=== PATIENT | female | born 1970 | race Caucasian/White ===

== ENCOUNTER 2016-09-14 08:13 | Outpatient (CLI) ==
[2016-03-12 14:14] VITALS: BMI 32.2
--- NOTE | 2016-09-14 09:08 | US ---
EXAM: Abdominal ultrasound limited HISTORY: Cirrhosis COMPARISON: Ultrasound 03/25/2016 TECHNIQUE: Sonographic and limited Doppler evaluation of the right upper quadrant was performed. FINDINGS: The liver is mildly heterogeneous in echogenicity and measures at upper limit of normal a t 16.8 cm. The portal vein is patent. The gallbladder is contracted with no visualized stones or s ludge. The gallbladder wall measures 0.4 cm, but the gallbladder is contracted. Common bile duct is unremarkable and measures 0.4 cm in diameter. The pancreas is unable to be evaluated due to bowel gas. The right kidney measures 9.2 x 4.6 x 4.5 cm and cortical thickness of 1.4 cm. IMPRESSION: 1. Coarse, increased echotexture of the liver with mild hepatomegaly and no focal hepatic cyst. Fin dings are consistent with cirrhosis. 2. The gallbladder is contracted with no visualized stones and gallbladder wall thickening likely r elated to contracted gallbladder.
== END 2016-09-14 08:14 | disposition home or self-care (01) ==
LOC: RAD 08:13
PROVIDERS: ATTEND Internal Medicine
DX: K74.60 Unspecified cirrhosis of liver (principal)

== ENCOUNTER 2016-09-16 14:05 | Outpatient (CLI) ==
[2016-03-12 14:14] VITALS: BMI 32.2
[2016-09-16 14:18] LABS: BASOPHILS # (AUTO) 0.1 K/uL (0-0.2); BASOPHILS % (AUTO) 0.8 % (0.0-3.0); EOSINOPHILS # (AUTO) 0.1 K/ul (0.0-0.7); EOSINOPHILS % (AUTO) 1.2 % (0.0-7.0); HEMATOCRIT 41.9 % (37.0-47.0); HEMOGLOBIN 13.6 g/dl (12.0-16.0); IMMATURE GRANULOCYTE % (AUTO) 0.3 % (0.0-5.0); LYMPHOCYTES # (AUTO) 2.5 K/uL (0.60-3.4); LYMPHOCYTES % (AUTO) 23.6 (10.0-50.0); MEAN CORPUSCULAR HEMOGLOBIN 28.6 pg (27.0-31.0); MEAN CORPUSCULAR HGB CONC 32.5 (31.8-35.4); MONOCYTES # (AUTO) 0.7 K/uL (0.4-2.0); MONOCYTES % (AUTO) 6.5 (0-10); NEUTROPHILS # (AUTO) 7.1 K/ul (2.0-6.9); NEUTROPHILS % (AUTO) 67.6; PLATELET COUNT 170 10^3/uL (140-440); RED BLOOD COUNT 4.76 10^6/ul (4.20-5.40); WHITE BLOOD COUNT 10.56 K/ul (4.6-10.2)
[2016-09-16 14:39] LABS: ALBUMIN 3.8 g/dL (3.4-5.0); ALBUMIN/GLOBULIN RATIO 1.19; ANION GAP 14.2; BILIRUBIN,TOTAL 1.17 mg/dL (0.00-1.20); BUN/CREATININE RATIO 16.41; CALCIUM 9.5 mg/dL (8.2-10.2); CREATININE 0.67 mg/dL (0.60-1.30); POTASSIUM 4.2 mmol/L (3.5-5.10)
== END 2016-09-16 14:06 | disposition home or self-care (01) ==
LOC: LAB 14:05
PROVIDERS: ATTEND Emergency Medicine
DX: F32.9 Major depressive disorder, single episode, unspecified (principal); I10 Essential (primary) hypertension; R60.9 Edema, unspecified
CPT/HCPCS: 36415; 80053; 85025

== ENCOUNTER 2016-12-09 16:10 | Outpatient (CLI) ==
[2016-03-12 14:14] VITALS: BMI 32.2
[2016-12-09 17:59] LABS: ALBUMIN 3.8 g/dL (3.4-5.0); ALBUMIN/GLOBULIN RATIO 1.15; ANION GAP 9.3; BILIRUBIN,TOTAL 0.46 mg/dL (0.00-1.20); BUN/CREATININE RATIO 13.84; CALCIUM 9.4 mg/dL (8.2-10.2); CHOL/HDL RATIO 3.6 (4.5-5.5); CREATININE 0.65 mg/dL (0.60-1.30); POTASSIUM 4.3 mmol/L (3.5-5.10); TOTAL PROTEIN 7.1 g/dL (6.4-8.2)
== END 2016-12-09 16:11 | disposition home or self-care (01) ==
LOC: LAB 16:10
PROVIDERS: ATTEND Nurse Practitioner Family
DX: E78.5 Hyperlipidemia, unspecified (principal); E03.9 Hypothyroidism, unspecified; I10 Essential (primary) hypertension; K70.30 Alcoholic cirrhosis of liver without ascites; R94.6 Abnormal results of thyroid function studies
CPT/HCPCS: 36415; 80053; 80061; 84443

== ENCOUNTER 2017-03-09 13:01 | Outpatient (CLI) ==
[2016-03-12 14:14] VITALS: BMI 32.2
--- NOTE | 2017-03-10 08:27 | MAMMO ---
EXAM: Bilateral digital screening mammogram History: Screening Comparison: Bilateral mammogram 03/04/2016 Findings: MLO and CC views of bilateral breasts demonstrate scattered fibroglandular breast parench yma. There are no dominant masses, no suspicious microcalcifications and no architectural distortion s Impression: Stable negative mammogram. Recommend followup routine screening mammography in 1 year. BIRADS 1
== END 2017-03-09 13:02 | disposition home or self-care (01) ==
LOC: RAD 13:01
PROVIDERS: ATTEND Nurse Practitioner Family
DX: Z12.31 Encounter for screening mammogram for malignant neoplasm of breast (principal)

== ENCOUNTER 2017-04-12 10:35 | Outpatient (CLI) ==
[2016-03-12 14:14] VITALS: BMI 32.2
[2017-04-12 11:03] LABS: BASOPHILS # (AUTO) 0.1 K/uL (0-0.2); BASOPHILS % (AUTO) 0.9 % (0.0-3.0); EOSINOPHILS # (AUTO) 0.2 K/ul (0.0-0.7); EOSINOPHILS % (AUTO) 2.5 % (0.0-7.0); HEMATOCRIT 42.9 % (37.0-47.0); HEMOGLOBIN 14.3 g/dl (12.0-16.0); IMMATURE GRANULOCYTE % (AUTO) 0.3 % (0.0-5.0); LYMPHOCYTES # (AUTO) 2.8 K/uL (0.60-3.4); LYMPHOCYTES % (AUTO) 36.8 (10.0-50.0); MEAN CORPUSCULAR HEMOGLOBIN 29.6 pg (27.0-31.0); MEAN CORPUSCULAR HGB CONC 33.3 (31.8-35.4); MEAN CORPUSCULAR VOLUME 88.8 fl (81.0-99.0); MONOCYTES # (AUTO) 0.5 K/uL (0.4-2.0); MONOCYTES % (AUTO) 6.9 (0-10); NEUTROPHILS % (AUTO) 52.6; PLATELET COUNT 180 10^3/uL (140-440); RED BLOOD COUNT 4.83 10^6/ul (4.20-5.40); WHITE BLOOD COUNT 7.66 K/ul (4.6-10.2)
[2017-04-12 11:26] LABS: PROTHROMBIN TIME 11.1 SEC (9.3-11.0)
[2017-04-12 11:46] LABS: ALBUMIN 3.8 g/dL (3.4-5.0); ALBUMIN/GLOBULIN RATIO 1.27; ANION GAP 14.3; BILIRUBIN,TOTAL 0.82 mg/dL (0.00-1.20); BUN/CREATININE RATIO 11.26; CREATININE 0.71 mg/dL (0.60-1.30); POTASSIUM 4.3 mmol/L (3.5-5.10); TOTAL PROTEIN 6.8 g/dL (6.4-8.2)
== END 2017-04-12 10:36 | disposition home or self-care (01) ==
LOC: LAB 10:35
PROVIDERS: ATTEND Nurse Practitioner Family
DX: K70.30 Alcoholic cirrhosis of liver without ascites (principal); E78.5 Hyperlipidemia, unspecified; E78.1 Pure hyperglyceridemia; E03.9 Hypothyroidism, unspecified; Z72.0 Tobacco use
CPT/HCPCS: 36415; 80053; 80061; 84443; 85025; 85610

== ENCOUNTER 2017-08-11 08:36 | Day surgery (SDC) ==
[2016-03-12 14:14] VITALS: BMI 32.2
[2017-08-11 09:57] VITALS: TEMP 98.5
[2017-08-11] MEDS ORDERED: CORTISPORIN OTIC SUSP OT PRN (09:58)
[2017-08-11] MEDS ORDERED: NEO-SYNEPHRINE OT PRN (09:58)
[2017-08-11] MEDS ORDERED: VERSED ONE (11:00)
[2017-08-11] MEDS ORDERED: DIPRIVAN 20 ML VIAL IVP ONE (11:00)
[2017-08-11] MEDS ORDERED: SUBLIMAZE ONE (11:00)
[2017-08-11] MEDS ORDERED: MARCAINE 0.25% MDV INJ STA (13:58)
[2017-08-11 14:04] VITALS: BP 97/63
--- NOTE | 2017-08-20 11:44 | OP ---
PREOPERATIVE DIAGNOSIS: 1. CHRONIC INFLAMMATION OF ANTERIOR TWO-THIRDS OF LEFT SIDE OF TONGUE 2. FRACTURED TOOTH POSTOPERATIVE DIAGNOSIS: SAME OPERATION: EXCISION OF LESION OF TONGUE AND LEFT PREMOLAR DENTAL EXTRACTION PROCEDURE: The patient was taken to surgery, placed on the table and general anesthesia was administered. 0.025% Marcaine was injected into the tongue then using a knife the area was excised and sent off for permanent section. The edges of the lesion were then brought together using interrupted 2-0 Silk suture. The fractured tooth was then loosened up and extracted. The dental site was then closed using interrupted 2-0 silk suture. The patient's mouth and oropharynx were irrigated copiously with saline. She was extubated and returned to the recovery room in satisfactory condition. KAREN
== END 2017-08-11 12:25 | disposition home or self-care (01) ==
LOC: SURG 08:36
PROVIDERS: ATTEND Otolaryngology
DX: D10.1 Benign neoplasm of tongue (principal); K14.3 Hypertrophy of tongue papillae; K14.0 Glossitis; S02.5XXA Fracture of tooth (traumatic), initial encounter for closed fracture
CPT/HCPCS: 41112

== ENCOUNTER 2017-11-01 08:43 | Outpatient (CLI) ==
[2016-03-12 14:14] VITALS: BMI 32.2
--- NOTE | 2017-11-01 09:49 | US ---
EXAM: Ultrasound abdomen limited. HISTORY: Cirrhosis. COMPARISON: 09/14/2016. TECHNIQUE: Abdominal, real time with image documentation: limited (eg, single organ, quadrant, foll ow-up) FINDINGS: The liver demonstrates increased parenchymal echogenicity with a subtle nodular surface co ntour. There is no intrahepatic biliary dilatation. Portal venous flow is normal in direction. The gallbladder is not identified. Common duct measures approximately 0.5 cm. The pancreas is not seen due to bowel gas. IMPRESSION: Stable appearance of the liver suggesting cirrhosis.
== END 2017-11-01 08:44 | disposition home or self-care (01) ==
LOC: RAD 08:43
PROVIDERS: ATTEND Clinical Nurse Specialist Family Health
DX: K74.60 Unspecified cirrhosis of liver (principal)
CPT/HCPCS: 36415; 80053; 85025; 85610

== ENCOUNTER 2017-12-20 13:16 | Outpatient (CLI) ==
[2016-03-12 14:14] VITALS: BMI 32.2
== END 2017-12-20 13:17 | disposition home or self-care (01) ==
LOC: LAB 13:16
PROVIDERS: ATTEND Emergency Medicine
DX: E78.5 Hyperlipidemia, unspecified (principal); E03.9 Hypothyroidism, unspecified; K70.30 Alcoholic cirrhosis of liver without ascites
CPT/HCPCS: 36415; 80053; 80061; 82140; 84443; 85025

== ENCOUNTER 2018-01-31 13:04 | Outpatient (CLI) ==
[2016-03-12 14:14] VITALS: BMI 32.2
== END 2018-01-31 13:05 | disposition home or self-care (01) ==
LOC: RHC-LAB 13:04
PROVIDERS: ATTEND Emergency Medicine
DX: E78.5 Hyperlipidemia, unspecified (principal); E03.9 Hypothyroidism, unspecified
CPT/HCPCS: 36415; 80053; 85025

== ENCOUNTER 2018-11-18 16:13 | Outpatient (CLI) ==
[2016-03-12 14:14] VITALS: BMI 32.2
== END 2018-11-18 16:14 | disposition home or self-care (01) ==
LOC: RHC-LAB 16:13 → FCC-LAB 16:14
PROVIDERS: ATTEND Family Medicine
DX: R35.0 Frequency of micturition (principal)
CPT/HCPCS: 87086

== ENCOUNTER 2019-01-23 16:28 | Outpatient (CLI) | payer OTHER ==
[2016-03-12 14:14] VITALS: BMI 32.2
== END 2019-01-23 16:29 | disposition home or self-care (01) ==
LOC: RHC-LAB 16:28 → FCC-LAB 16:29
PROVIDERS: ATTEND Family Medicine
DX: R74.8 Abnormal levels of other serum enzymes (principal); E72.11 Homocystinuria; R30.0 Dysuria; E78.5 Hyperlipidemia, unspecified; R79.89 Other specified abnormal findings of blood chemistry; E03.9 Hypothyroidism, unspecified; E61.1 Iron deficiency; F10.10 Alcohol abuse, uncomplicated
CPT/HCPCS: 36415; 80053; 80061; 80307; 82607; 82728; 82746; 82977; 83540; 83550; 84443; 85025; 87086